=== PATIENT | female | born 2005 | race Caucasian/White ===

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

== ENCOUNTER 2024-01-26 12:05 | Emergency (ER) | payer BC, SELFPAY ==
--- NOTE | ~2024-01-26 | XR_ITS ---
EXAMINATION: XR CHEST CLINICAL INFORMATION: Chest pain COMPARISON: None available. TECHNIQUE: 2 views of the chest were obtained. FINDINGS: Stent stent-like valvular changes noted. No significant abnormality is noted involving the heart, lungs, mediastinum, bony thorax or soft tissues. XR/XR chest 2V IMPRESSION: No active chest disease. Electronically signed by: Manjit Paredes MD 01/26/2024 02:47 PM EDT RP
--- NOTE | 2024-01-26 12:09 | ECG_ITS ---
Test Reason : chest pain Blood Pressure : / mmHG Vent. Rate : 065 BPM Atrial Rate : 065 BPM P-R Int : 128 ms QRS Dur : 082 ms QT Int : 384 ms P-R-T Axes : 013 029 012 degrees QTc Int : 399 ms Normal sinus rhythm Normal ECG No previous ECGs available Referred By: Teresa Ross Electronically Signed By:FRANDY BELCHER
[2024-01-26 12:16] VITALS: BP 133/68; PULSE 72; RESP 16; TEMP 37; O2SAT 99; BMI 27.3
--- NOTE | 2024-01-26 12:16 | ED_ITS ---
HPI - Chest Pain General Chief Complaint: Chest Pain Stated Complaint: CP Time Seen by Provider: 01/26/24 14:40 Source: patient Mode of arrival: ambulatory Limitations: no limitations History of Present Illness ED Provider: too SCHILLING narrative: Patient is a 18-year-old female with history of cardiac surgery as an , pulmonary valve implant as a teenager presenting from [facility] after an episode of chest pain which began around 10:30 this morning and has since resolved. States pain was primarily under her left breast. She reports that she has this pain intermittently every few weeks, and that it is typically brief and resolves after she takes her daily aspirin. She notified staff at [facility] and they had her come to the ED. Reports this increased her anxiety. Patient states that she did not feel she needed to come to the ED, as she has this pain often. She is not on OCPs. Denies shortness of breath or palpitations. MD complaint: chest pain Pertinent past history: other Onset (ago): hour(s) Timing of current episode: now resolved Prior episodes: Yes Onset: during rest Pain location: left chest Relieving factors: other Treatment prior to arrival: aspirin Related Data Allergies Allergy/AdvReac Type Severity Reaction Status Date / Time No Known Allergies Allergy Verified 01/26/24 12:18 Review of Systems 2 Review of Systems: As per HPI. Yes all other systems are reviewed and are negative Constitutional: Constitutional: Reports as per HPI [facility] Social History Social History Smoked in Last 30 Days: Yes Use of substances other than those prescribed or required for medical reasons: Yes Substance Use Type: Marijuana Substance Use Frequency: Weekly Any prior treatment program specific to substance use: No Advance Directives: No Advance Directives Information Provided: No Do you have a plan to hurt others: No Plan Patient : No Physical Exam 2 Vital Signs: Vital Signs: Last Vital Signs Temp 96.5 F L 01/26/24 14:47 Pulse 81 01/26/24 14:47 Resp 16 01/26/24 14:47 BP 134/64 01/26/24 14:47 Pulse Ox 100 01/26/24 14:47 O2 Del Method Room Air 01/26/24 14:47 BMI result Body Mass Index 27.3 Vital signs have been reviewed and appear to be correct. Blood pressure normal. Heart rate normal. Respiratory rate normal. Temperature normal. Oxygen saturation normal. Const: General: cooperative, healthy appearing and no acute distress O rientation/consciousness: oriented to person, oriented to place, oriented to time and patient oriented x3 Limitations: no limitations HEENT: Head: Yes normocephalic and Yes atraumatic Ears: external ears normal General nose exam: Normal external nose present Face and sinus: Yes face symmetric Mouth: oropharynx normal and moist mucous membranes Throat: Yes uvula midline Eyes: Pupils: Equal, round and reactive pupils present Neck: Neck: Yes normal visual inspection and Yes supple Resp: Effort & Inspection: normal respiratory effort and able to speak in complete sentences Auscultation: clear to auscultation bilaterally Cardio: Rate: regular rate Rhythm: regular rhythm Heart sounds: S1 normal heart sound present and S2 normal heart sound present GI: Palpation (GI): Soft to palpation and nontender Auscultation: n ormoactive bowel sounds : General: Yes no CVA tenderness Back/Spine/Pelvis: Back: no CVA tenderness Skin: General skin exam: elasticity normal and turgor normal Neuro: General: oriented to person, oriented to place, oriented to time, patient oriented x3, moves all extremities, no focal motor deficits and CN's II- XI intact bilaterally Cranial nerves: Yes Equal, round and reactive pupils present Cognition (Neuro): normal cognition Extrem: General: Yes full ROM, Yes no pedal edema and Yes no calf tenderness Psych: Mental Status: mental status grossly normal Affect: normal affect Thought process: Normal thought process present Course Course Course Narrative: This is a Rapid Medical Examination (RME) performed by Dima Ross PA-C in triage. Full HPI, ROS, assessment and treatment plan per primary provider in the Main ED. 18 yo female with history of cardiac surgery as an infant, pulmonary valve implant as a teenager who presents to the ER for evaluation of chest pain that started at 1030am when she was sitting at the computer. She took her daily aspirin with some improvement. Pain was mostly on the left side but it now all across her chest. Had increased pain and anxiety when she was told she needed to come to the ER. VSS in triage, anxious. RRR on exam, with murmur in the pulmonic area. Lungs are clear. Plan: labs, EKG, CXR Medical Decision Making Medical Decision Making [facility] Narrative: Patient is a 18-year-old female with history of cardiac surgery as an , pulmonary valve implant as a teenager presenting from [facility] after an episode of chest pain which began around 10:30 this morning. On exam patient is awake, A+Ox3, VS WNL, afebrile, normal neurological exam without focal deficits, physical exam findings as above. Given reported symptoms and physical exam findings, initial differential includes costochondritis, musculoskeletal pain. Unlikely ACS, but will check EKG and troponin. Unlikely pneumothorax or pneumonia but will check CXR. Do not suspect PE, PERC negative. Labs notable for no leukocytosis, no anemia, no significant electrolyte abnormalities, negative troponin, negative HCG. X-ray chest notable for no evidence of pneumonia or pneumothorax. My interpretation is in agreement with the radiologist's interpretation. EKG shows normal sinus rhythm. Feel patient is stable for discharge, follow up with PCP/lockstitch pocket setter. Return precautions discussed at bedside. Patient verbalized understanding of and agreement with plan. Differential Diagnosis Differential Diagnoses: The differential diagnosis associated with the presentation includes as per [facility] Admission/Observation Consideration of admission/observation: Escalation of care including admission/observation considered Patient would have been admitted to the hospital had their work up had any findings where hospital admission was appropriate and their clinical presentation warranted hospital admission. Lab Data [facility] Lab Attestation statement: I reviewed the patient's lab results. As per [facility]. 01/26/24 12:36 01/26/24 12:36 Labs: Lab Results 01/26/24 Range/Units 12:36 WBC 10.9 H (4.8-10.8) X10*3/uL RBC 4.35 (4.20-5.50) X10*6/uL Hgb 13.2 (12.0-16.0) g/dl Hct 38.5 (37.0-47.0) % MCV 88.5 (80.0-98.0) fL MCH 30.3 (27.0-33.0) pg MCHC 34.3 (31.0-35.0) g/dl RDW 13.2 (11.0-16.0) % Plt Count 304 (160-400) X10*3/uL MPV 9.3 L (9.4-12.3) fL Immature Gran % (Auto) 0.3 (0.0-0.4) % Neut % (Auto) 47.5 (45-73) % Lymph % (Auto) 44.4 H (20-40) % [place]son % (Auto) 6.5 (2-11) % Eos % (Auto) 0.7 (0-4) % Baso % (Auto) 0.6 (0-2) % Lymph # (Auto) 4.8 (1.2-4.9) X10*3/uL [place]son # (Auto) 0.7 (0.1-1.2) X10*3/uL Eos # (Auto) 0.1 (0.0-0.4) X10*3/uL Baso # (Auto) 0.1 (0.0-0.2) X10*3/uL Abs Immat Gran (auto) 0.03 (0.00-0.03) X10*3/uL Absolute Neuts (auto) 5.2 (2.0-8.3) x10*3/uL Absolute Nucleated RBC 0.000 (0.0-0.012) X10*3/uL Nucleated RBC % (auto) 0.0 (0.0-0.2) /100WBC Sodium 138 (135-145) mmol/L Potassium 4.0 (3.3-5.1) mmol/L Chloride 107 (96-108) mmol/L Carbon Dioxide 22 (22-29) mmol/L Anion Gap 13 (12-20) BUN 8 L (9-16) mg/dL Creatinine 0.78 (0.5-1.4) mg/dL Estim Creat Clear Calc 91.5 Estimated GFR > 60 Random Glucose 90 (60-115) mg/dL Calcium 9.7 (8.4-10.2) mg/dL Magnesium 2.0 (1.6-2.6) mg/dL Total Bilirubin 0.2 (0.0-1.0) mg/dL Direct Bilirubin < 0.2 (0.0-0.5) mg/dL AST 15 (5-31) U/L ALT 11 (0-31) U/L Alkaline Phosphatase 67 (39-117) U/L Troponin I High Sens < 2.7 (<3.5-17.0) ng/L Total Protein 7.3 (6.5-8.0) g/dL Albumin 4.2 (3.5-5.0) g/dL Urine Color Yellow Urine Appearance Clear Urine pH 8.0 (5.0-9.0) Ur Specific [place] <= 1.005 (1.005-1.025) Urine Protein Negative (Neg-Trace) mg/dL Urine Glucose (UA) Negative (Negative) mg/dL Urine Ketones Negative (Negative) mg/dL Urine Blood Negative (Negative) Urine Nitrite Negative (Negative) Ur Leukocyte Esterase Moderate (2+) H (Negative) Urine RBC 0-2 (0-2) /HPF Urine WBC 6-10 H (0-5) /HPF Ur Squamous Epith Cells 6-10 (0-2) /HPF Urine Bacteria 1+ (None Seen) Hyaline Casts 0-2 (0-2) /LPF Independent Interpretation I performed an independent interpretation of an: EKG (normal sinus rhythm, rate 65bpm, normal NC interval and Qtc) and Plain X-Ray Interpretation: No evidence of pneumothorax or pneumonia on cxr Radiology Impression Discussion of test interpretation with radiology: I have reviewed the radiologist's reading. Radiologist Impression: XR/XR chest 2V IMPRESSION: No active chest disease. External Record Review External record reviewed: Inpatient record, Office record and Outpatient record Discharge Plan Discharge Clinical Impression: Atypical chest pain Patient Disposition: Home, Self-Care Instructions: Chest Pain (DC), Noncardiac Chest Pain (ED) Additional Instructions: You were evaluated in the emergency department today for chest pain. Your evaluation has shown no signs of medical conditions requiring emergent intervention at this time, however we recommend that you follow-up with your primary care physician or your lockstitch pocket setter as soon as possible for further testing as an outpatient. Please schedule an appointment for follow-up with your primary care physician as soon as possible. Return to the emergency department if you experience worsening or uncontrolled chest pain, shortness of breath, lightheadedness, feeling faint, loss of consciousness, nausea, vomiting, or any other concerning symptoms. Print Language: Tuvaluan
[2024-01-26 12:47] LABS: MANUAL DIFF FLAG NO
[2024-01-26 12:49] LABS: Basophils Absolute Auto 0.1 X10*3/uL (0.0-0.2); Basophils Percent Auto 0.6 % (0-2); Eosinophils Absolute Auto 0.1 X10*3/uL (0.0-0.4); Eosinophils Percent Auto 0.7 % (0-4); Hematocrit 38.5 % (37.0-47.0); Hemoglobin 13.2 g/dl (12.0-16.0); Imm Gran Abs Auto 0.03 X10*3/uL (0.00-0.03); Imm Gran Pct Auto 0.3 % (0.0-0.4); Lymphocytes Absolute Auto 4.8 X10*3/uL (1.2-4.9); Lymphocytes Percent Auto 44.4 % (20-40); Mean Corpuscular HGB Conc 34.3 g/dl (31.0-35.0); Mean Corpuscular Hemoglobin 30.3 pg (27.0-33.0); Mean Corpuscular Volume 88.5 fL (80.0-98.0); Mean Platelet Volume 9.3 fL (9.4-12.3); Monocytes Absolute Auto 0.7 X10*3/uL (0.1-1.2); Monocytes Percent Auto 6.5 % (2-11); Neutrophils Absolute Auto 5.2 x10*3/uL (2.0-8.3); Neutrophils Percent Auto 47.5 % (45-73); Platelet Count 304 X10*3/uL (160-400); Red Blood Count 4.35 X10*6/uL (4.20-5.50); Red Cell Distribution Width 13.2 % (11.0-16.0); White Blood Count 10.9 X10*3/uL (4.8-10.8)
[2024-01-26 12:50] LABS: Appearance Urine Clear; Color Urine Yellow; Glucose Urine UA Negative (Negative); Leukocyte Esterase Urine Moderate (2+) (Negative); Nitrite Urine Negative (Negative); Specific Gravity - Urine <= 1.005 (1.005-1.025); UMIC TRIGGER UACC YES; Urine Blood Negative (Negative); Urine Ketones Negative (Negative); Urine Protein Negative (Neg-Trace)
[2024-01-26 12:53] LABS: Bacteria Urine 1+ (None Seen); Hyaline Casts Urine 0-2 /LPF (0-2); RBC Urine 0-2 /HPF (0-2); UACC Culture Trigger YES
[2024-01-26 13:06] LABS: Alanine Aminotransferase 11 U/L (0-31); Albumin Level 4.2 g/dL (3.5-5.0); Alkaline Phosphatase 67 U/L (39-117); Anion Gap 13 (12-20); Aspartate Amino Transferase 15 U/L (5-31); Bilirubin Direct < 0.2 mg/dL (0.0-0.5); Bilirubin Total 0.2 mg/dL (0.0-1.0); Blood Urea Nitrogen 8 mg/dL (9-16); Calcium 9.7 mg/dL (8.4-10.2); Carbon Dioxide 22 mmol/L (22-29); Chloride 107 mmol/L (96-108); Creatinine Clr Calc Pharmacy 91.5; Estimated Glomerular Filt Rate > 60; Glucose Random 90 mg/dL (60-115); Sodium 138 mmol/L (135-145); Total Protein 7.3 g/dL (6.5-8.0)
[2024-01-26 13:13] LABS: Troponin-I High Sensitivity < 2.7 ng/L (<3.5-17.0)
[2024-01-26 14:47] VITALS: BP 134/64; PULSE 81; RESP 16; TEMP 35.8; O2SAT 100
--- NOTE | 2024-01-26 14:50 | PC.NURSE ---
Pt comes to ED today from [facility] for c/o increased anxiety and chest pain 07/30. Pt reports pain was sharp and stabbing in nature to her L chest. Pt reports using self soothing techniques and pain has now resolved. NAD at this time. VSS, A&Ox3, and afebrile.
[2024-01-26 15:10] LABS: HCG Quantitative < 2 mIU/mL
[2024-01-26 15:17] VITALS: BP 134/64; PULSE 81; RESP 16; TEMP 35.8; O2SAT 100
== END 2024-01-26 15:17 | disposition home or self-care (01) ==
PROVIDERS: Physician Assistant; Registered Nurse Emergency; Emergency Provider Emergency Medicine
DX: R07.89 Other chest pain (principal); F41.9 Anxiety disorder, unspecified; F12.90 Cannabis use, unspecified, uncomplicated; Z79.82 Long term (current) use of aspirin
CPT/HCPCS: 36415; 71046; 80048; 80076; 81001; 83735; 84484; 84702; 85025; 87086; 93005; 99283; 99285

== ENCOUNTER 2024-07-29 19:52 | Emergency (ER) | payer BC, SELFPAY ==
[2024-07-29 20:09] VITALS: BP 115/79; PULSE 103; RESP 18; TEMP 36.9; O2SAT 97; BMI 26.3
--- NOTE | 2024-07-29 20:21 | ED_ITS ---
HPI - General Adult General Chief complaint: General Medical Stated complaint: flu like symptoms Time Seen by Provider: 07/29/24 22:30 Source: patient Mode of arrival: ambulatory Limitations: no limitations History of Present Illness ED Provider: HPI narrative: patient with flu-like symptoms since yesterday her partner was positive for flu 2 days ago no shortness a breath has a body ache and nasal congestion mostly with dry cough Related Data Previous Rx's ?Medication ?Instructions ?Recorded amoxicillin 875 mg-potassium 1 tab PO BID #20 tabs 07/29/24 clavulanate 125 mg tablet benzonatate 200 mg capsule 200 mg PO TID PRN cough #20 caps 07/29/24 ibuprofen 600 mg tablet 600 mg PO Q6H PRN fever or pain 07/29/24 #30 tabs benzocaine 15 mg-menthol 2.6 mg 1 mikhail mucous membrane Q2-4H PRN 08/02/24 lozenges (Cepacol Sore Throat sore throat #16 ea (benzocaine-menthol)) fluticasone propionate 50 2 spray intranasal DAILY #16 grams 08/02/24 mcg/actuation nasal spray,suspension (Flonase Allergy Relief) prednisone 20 mg tablet 40 mg (2 x 20 mg) PO DAILY 5 days 08/02/24 #10 tabs Allergies Allergy/AdvReac Type Severity Reaction Status Date / Time No Known Allergies Allergy Verified 08/02/24 08:40 Review of Systems Review of Systems: Yes all other systems are reviewed and are negative [facility] Social History Social History Alcohol intake: current Alcohol intake frequency: a few times a month Substance Use Type: Marijuana Physical Exam ED Vital Signs: Vital Signs - 24 hr 07/29/24 22:57 07/29/24 23:14 Temperature 97.5 F 97.5 F Pulse Rate 79 79 Respiratory Rate 18 18 Blood Pressure 116/72 116/72 Pulse Oximetry 99 99 Oxygen Delivery Method Room Air Room Air BMI result Body Mass Index 26.3 Appearance: Alert. Oriented X3. No acute distress. Eyes: no pallor or icterus ENT: Pharynx normal. Oral Mucosa moist clear rhinorrhea Neck: Normal inspection. Neck supple. CVS: Normal heart rate and rhythm. Pulses normal. Respiratory: No respiratory distress. Equal air entry bilateral, no wheezing/rales/rhonchi Abd: soft, not tender Skin: Skin warm and dry. Normal skin color. Normal skin turgor. Extremities: No lower extremity edema, no calf tenderness Neuro: Oriented X 3. Course Course Course Narrative: RME: 18 yold female presents to the ED for sore throat, cough, and bodyaches with ear aches, fever, and chills. SARS/Streps Medications Administered Discontinued Medications Generic Name Dose Route Start Last Admin Trade Name Freq PRN Reason Stop Dose Admin Amoxicillin/Clavulanate Potassium 875 mg 07/29/24 22:46 07/29/24 23:06 Amoxicillin/Potassium Clav 875 Mg Tablet PO 07/29/24 22:47 875 mg ONCE ONE Administration Benzonatate 200 mg 07/29/24 22:44 07/29/24 23:06 Benzonatate 100 Mg Capsule PO 07/29/24 22:45 200 mg ONCE ONE Administration Ibuprofen 600 mg 07/29/24 22:48 07/29/24 23:06 Ibuprofen 600 Mg Tablet PO 07/29/24 22:49 600 mg ONCE ONE Administration Medical Decision Making Medical Decision Making [facility] Narrative: patient with influenza a will prescribe Tamiflu and cough drops Lab Data [facility] Lab Attestation statement: I reviewed the patient's lab results. Labs: Lab Results 07/29/24 07/29/24 Range/Units 03:21 20:57 Influenza Type A (PCR) POSITIVE A (Negative) Influenza Type B (PCR) NEGATIVE (Negative) RSV RNA Qual (PCR) NEGATIVE (Negative) SARS-CoV-2 RNA (RT-PCR) NEGATIVE (Negative) S. pyogenes GrpA MARIA L Negative (Negative) Discharge Plan Discharge Clinical Impression: Acute left otitis media, Influenza A Patient Disposition: Home, Self-Care Instructions: Influenza (ED), Ear Infection (ED) Additional Instructions: Drink antibiotics as prescribed for left ear infection Cough drops as prescribed Ibuprofen for pain and body Social distancing as advised Prescriptions: New benzonatate 200 mg capsule 200 mg PO TID PRN (Reason: cough) Qty: 20 0RF amoxicillin-pot clavulanate 875-125 mg tablet 1 tab PO BID Qty: 20 0RF ibuprofen 600 mg tablet 600 mg PO Q6H PRN (Reason: fever or pain) Qty: 30 0RF No Action fluticasone propionate [Flonase Allergy Relief] 50 mcg/actuation spray,suspension 2 spray intranasal DAILY Qty: 16 0RF Rx Instructions: administer into each nostril prednisone 20 mg tablet 40 mg PO DAILY 5 Days Qty: 10 0RF Cepacol Sore Throat (emely-men) 15-2.6 mg lozenge 1 mikhail mucous membrane Q2-4H PRN (Reason: sore throat) Qty: 16 0RF Stand Alone Forms: Work/School Release Interventions: ED Discharge Assessment Last Done: 07/29/24 23:14 Discharge Date/Time: 07/29/24 23:15 Print Language: German
[2024-07-29 21:24] LABS: IDNOW Serial# 08D9AD1C; Strep A Nucleic Acid Negative (Negative)
[2024-07-29 21:53] LABS: Influenza A PCR POSITIVE (Negative); Influenza B PCR NEGATIVE (Negative); Resp Syncy Virus RNA Qual PCR NEGATIVE (Negative); SARS COV2 PCR INHOUSE NEGATIVE (Negative)
[2024-07-29 22:57] VITALS: BP 116/72; PULSE 79; RESP 18; TEMP 36.4; O2SAT 99
[2024-07-29] MEDS: Benzonatate 100 MG CAPSULE 200 MG PO (23:06)
[2024-07-29] MEDS: Amoxicillin/Potassium Clav 875 MG TABLET PO (23:06)
[2024-07-29] MEDS: Ibuprofen 600 MG TABLET PO (23:06)
[2024-07-29 23:14] VITALS: BP 116/72; PULSE 79; RESP 18; TEMP 36.4; O2SAT 99
== END 2024-07-29 23:15 | disposition home or self-care (01) ==
PROVIDERS: Physician Assistant; Emergency Provider Internal Medicine
DX: J10.1 Influenza due to other identified influenza virus with other respiratory manifestations (principal); H66.92 Otitis media, unspecified, left ear; R06.02 Shortness of breath; M79.10 Myalgia, unspecified site; R05.9 Cough, unspecified; R50.9 Fever, unspecified; Z03.818 Encounter for observation for suspected exposure to other biological agents ruled out
CPT/HCPCS: 0241U; 87651; 99283

== ENCOUNTER 2024-08-02 08:20 | Emergency (ER) | payer BC, SELFPAY ==
--- NOTE | ~2024-08-02 | XR_ITS ---
EXAMINATION: XR CHEST CLINICAL INFORMATION: SOB COMPARISON: 01/26/2024. TECHNIQUE: 2 views of the chest were obtained. FINDINGS: The cardiac, hilar, and mediastinal contours are normal. TAVR in place. Lungs demonstrate mild linear atelectasis in the lingular segment. Lungs otherwise clear. There is no pneumothorax or pleural effusion. There is no focal osseous or soft tissue abnormality. XR/XR chest 2V IMPRESSION: 1. No active pulmonary disease. 2. TAVR. Electronically signed by: José Miguel Mcconnell MD 08/02/2024 10:24 AM EDT
[2024-08-02 08:30] VITALS: BP 123/64; PULSE 91; RESP 16; TEMP 36.6; O2SAT 97
[2024-08-02 08:36] VITALS: BP 123/64; PULSE 77; RESP 20; TEMP 36.7; O2SAT 97; BMI 26.5
[2024-08-02 08:43] VITALS: O2SAT 97
[2024-08-02] MEDS: Throat Lozenge, Medicated LOZENGE 1 LOZENGE MUCOUS MEM (10:23)
--- NOTE | 2024-08-02 10:24 | ED.URI ---
HPI - URI/Sore Throat General Chief Complaint: Upper Respiratory Symptoms Stated Complaint: Vomiting, cough, flu + on 07/29 Time Seen by Provider: 08/02/24 09:47 Source: patient, RN notes reviewed and old records reviewed Mode of arrival: ambulatory History of Present Illness ED Provider: Jocy Heaton PA-C [facility] Narrative: 18-year-old female with a past medical history of influenza and otitis diagnosed on 07/29/2024 in our ED currently on Augmentin, presenting to the ED complaining of continued cough, myalgias, congestion, sinus pressure, sore throat, and post-tussive emesis x1 episode this morning with blood streaks. Denies AC use. Denies known fever, travel, abdominal pain, nausea, diarrhea. + Multiple sick contacts Related Data Previous Rx's ?Medication ?Instructions ?Recorded amoxicillin 875 mg-potassium 1 tab PO BID #20 tabs 07/29/24 clavulanate 125 mg tablet benzonatate 200 mg capsule 200 mg PO TID PRN cough #20 caps 07/29/24 ibuprofen 600 mg tablet 600 mg PO Q6H PRN fever or pain 07/29/24 #30 tabs fluticasone propionate 50 2 spray intranasal DAILY #16 grams 08/02/24 mcg/actuation nasal spray,suspension (Flonase Allergy Relief) prednisone 20 mg tablet 40 mg (2 x 20 mg) PO DAILY 5 days 08/02/24 #10 tabs Allergies Allergy/AdvReac Type Severity Reaction Status Date / Time No Known Allergies Allergy Verified 08/02/24 08:40 Review of Systems Review of Systems: Yes all other systems are reviewed and are negative Constitutional: Constitutional: Reports as per [facility] Past Medical History Attestation statement: The following information was validated with the patient. Source: old records reviewed Social History Social History Alcohol intake: current Alcohol intake frequency: a few times a month Smoked in Last 30 Days: No Use of substances other than those prescribed or required for medical reasons: Yes Substance Use Type: Marijuana Substance Use Frequency: Occasionally Advance Directives: No Advance Directives Information Provided: Yes Do you have a plan to hurt others: No Plan Physical Exam Vital Signs: Vital Signs: Last Vital Signs Temp 98.3 F 08/02/24 10:33 Pulse 83 08/02/24 10:33 Resp 18 08/02/24 10:33 BP 127/86 08/02/24 10:33 Pulse Ox 98 08/02/24 10:33 O2 Del Method Room Air 08/02/24 10:33 BMI result Body Mass Index 26.5 Const: General: cooperative, healthy appearing and no acute distress Orientation/consciousness: patient oriented x3 Limitations: no limitations HEENT: Head: Yes normal to inspection and Yes atraumatic Ears: hearing grossly normal bilaterally, external ears normal and TM abnormal with fluid behind the TM on the left; not bulging General nose exam: Normal external nose present Face and sinus: Yes normal facial exam Mouth: Normal oral and palatal mucosa present Throat: Yes posterior oropharynx normal, Yes tonsils normal, Yes uvula midline, No uvula laterally displaced and No uvular edema Eyes: General: appearance normal, both eyes and all related structures EOM: EOMs intact bilaterally Neck: Neck: Yes normal visual inspection and Yes no meningeal signs Resp: Effort & Inspection: normal respiratory effort, no respiratory distress and no stridor Auscultation: clear to auscultation bilaterally Cardio: Rate: regular rate Heart sounds: S1 normal heart sound present and S2 normal heart sound present GI: Inspection: Yes normal to inspection Palpation (GI): Soft to palpation, nontender, no guarding and not rigid Skin: Rashes: no rashes Wounds: no wounds Neuro: General: patient oriented x3, tone normal and no meningeal signs Cranial nerves: Yes CN's II-XII intact bilaterally Gait exam (Neuro): Normal gait present Extrem: General: Yes normal to inspection Course Course Course Narrative: XR chest 2V IMPRESSION: 1. No active pulmonary disease. 2. TAVR. on re-evaluation reports symptomatic improvement after Cepacol cough drop > recommended continuation of previously prescribed antibiotics/ ibuprofen and Tessalon Perles. Will add prednisone and Flonase Results discussed with patient including worrisome signs and symptoms and strict return precautions, and when to return to the emergency department. They verbalized understanding and feel safe for discharge at this time. Medications Administered Discontinued Medications Generic Name Dose Route Start Last Admin Trade Name Freq PRN Reason Stop Dose Admin Acetaminophen 650 mg 08/02/24 09:55 08/02/24 10:24 Acetaminophen 325 Mg Tablet PO 08/02/24 09:56 Not Given ONCE ONE Benzocaine 1 lozenge 08/02/24 09:55 08/02/24 10:23 Throat Lozenge, Medicated Lozenge MUCOUS MEM 08/02/24 09:56 1 lozenge ONCE ONE Administration Medical Decision Making Medical Decision Making MDM Narrative: 18-year-old female with a past medical history of influenza and otitis diagnosed on 07/29/2024 in our ED currently on Augmentin, presenting to the ED complaining of continued cough, myalgias, congestion, sinus pressure, sore throat, and post-tussive emesis x1 episode this morning with blood streaks. on exam vital signs stable, NAD, nontoxic appearing, lungs CTA, abdomen soft /nontender, oropharynx WNL. Concern for continued viral illness and otitis vs pneumonia vs bronchitis. Lower suspicion for acute PE/DVT, malignancy, intra-abdominal pathology or ACS. Plan: Symptomatic remedies, CXR Please refer to course for remaining clinical decision making, interpretation of labs/imaging results, and discussions with consultants and/or family members. Differential Diagnosis Differential Diagnoses: The differential diagnosis associated with the presentation includes As above Independent Interpretation I performed an independent interpretation of an: Plain X-Ray Radiology Impression Discussion of test interpretation with radiology: I have reviewed the radiologist's reading. External Record Review External record reviewed: Inpatient record, Office record, Outpatient record, Prior outpatient labs, Prior outpatient radiology, Primary care record and Outside ED record Tests considered The following testing was considered but not selected: As above Prescription Management I considered prescription management with: Pain Medication and Antibiotic Chronic Conditions Patient?s care impacted by: Other Social Determinants Patient?s care significantly limited by Social Determinants of Health including: Other Social Determinant of Health Discharge Plan Discharge Clinical Impression: Bronchitis Patient Disposition: Home, Self-Care Instructions: Acute Bronchitis (ED) Additional Instructions: your chest x-ray is unremarkable. No pneumonia Please continue taking previously prescribed antibiotics, ibuprofen, and Tessalon Perles for cough In addition prednisone as a steroid, and Flonase as a nasal decongestant, take as prescribed Follow up with your doctor If her symptoms persist or worsen return to the emergency department Take ibuprofen and Tylenol for pain/ fevers Prescriptions: New fluticasone propionate [Flonase Allergy Relief] 50 mcg/actuation spray,suspension 2 spray intranasal DAILY Qty: 16 0RF Rx Instructions: administer into each nostril prednisone 20 mg tablet 40 mg PO DAILY 5 Days Qty: 10 0RF No Action benzonatate 200 mg capsule 200 mg PO TID PRN (Reason: cough) Qty: 20 0RF amoxicillin-pot clavulanate 875-125 mg tablet 1 tab PO BID Qty: 20 0RF ibuprofen 600 mg tablet 600 mg PO Q6H PRN (Reason: fever or pain) Qty: 30 0RF Referrals: Physician,None [Primary Care Provider] - 3 days Print Language: Syriac
[2024-08-02 10:33] VITALS: BP 127/86; PULSE 83; RESP 18; TEMP 36.8; O2SAT 98
[2024-08-02] MEDS: Ibuprofen 400 MG TABLET PO (11:00)
[2024-08-02 11:06] VITALS: BP 127/86; PULSE 83; RESP 18; TEMP 36.8; O2SAT 98
== END 2024-08-02 11:07 | disposition home or self-care (01) ==
PROVIDERS: Emergency Provider Emergency Medicine
DX: J40 Bronchitis, not specified as acute or chronic (principal)
CPT/HCPCS: 71046; 99283; 99285

== ENCOUNTER → 2024-08-02 09:47 | Outpatient (BNV) | payer BC, SELFPAY | PROVIDERS: Emergency Provider Emergency Medicine; Visit Provider Radiology Diagnostic Radiology | DX: R06.02 Shortness of breath (principal) | CPT/HCPCS: 71046 ==